=== PATIENT | male | born 1935 | race Caucasian/White ===

== ENCOUNTER 2019-06-02 10:57 | Inpatient (IN) | payer MEDICARE, OTHER ==
[~2019-06-02] VITALS: Ht 180.3 cm; Wt 74.1 kg
[2019-06-02] MEDS ORDERED: SODIUM CHLORIDE 0.9% 1,000 ML IV ONE ×2 (11:03→15:00)
[2019-06-02 11:33] LABS: Basophils # (auto) 0 uL; Basophils % (auto) 0.4 % (0.0-2.0); Eosinophils # (auto) 0.1 uL; Eosinophils % (auto) 1.5 % (0.0-7.0); Hematocrit 38.2 % (41.0-53.0); Hemoglobin 12.8 g/dL (13.5-17.5); Lymphocytes # (auto) 1.1 uL; Lymphocytes % (auto) 17.3 % (10.0-50.0); Mean Corpuscular Hemoglobin 31.7 pg (28.0-32.0); Mean Corpuscular Hgb Conc. 33.4 g/dL (32.0-36.0); Mean Corpuscular Volume 94.8 fL (80.0-100.0); Monocytes # (auto) 0.6 uL; Monocytes % (auto) 9.1 % (0.0-12.0); Neutrophils # (auto) 4.5 uL; Neutrophils % (auto) 71.7 % (37.0-80.0); Nucleated Red Blood Cells % 0.1 %; Platelet Count (auto) 165 10^3/uL (140-450); Red Blood Cells 4.02 10^6/uL (4.5-5.90); Red Cell Distribution Width 13.9 % (11.8-14.3); White Blood Cell 6.3 10^3/uL (4.4-10.8)
[2019-06-02 11:53] LABS: Alanine Aminotransferase 17 U/L (16-61); Albumin 3.2 g/dL (3.4-5.0); Anion Gap 8 (5-15); Blood Urea Nitrogen 31 mg/dL (7-18); Calcium 8.3 mg/dL (8.5-10.1); Carbon Dioxide 23 mmol/L (21-32); Chloride 108 mmol/L (98-107); Glucose 116 mg/dL (74-106); Magnesium 1.9 mg/dL (1.6-2.6); Potassium 4.2 mmol/L (3.5-5.1); Sodium 139 mmol/L (136-145)
[2019-06-02 11:58] LABS: Alkaline Phosphatase 67 U/L (45-117); Aspartate Aminotransferase 19 U/L (15-37); BUN/Creatinine Ratio 17.3; Bilirubin, Total 0.7 mg/dL (0.2-1.0); GFR African American 47 mL/min; GFR Non-African American 39 mL/min
[2019-06-02] MEDS ORDERED: ONDANSETRON HCL 4 MG/2 ML VIAL IV PRN (15:00)
[2019-06-02] MEDS ORDERED: ACETAMINOPHEN 500 MG TAB PO PRN (15:00)
[2019-06-02] MEDS ORDERED: hydrALAZINE HCL 20 MG/ML VL IV PRN (15:00)
[2019-06-02] MEDS ORDERED: HYDROcodone-ACET 5/325MG TAB PO PRN (15:00)
[2019-06-02] MEDS ORDERED: NITROGLYCERIN 0.4 MG SL TAB SL PRN (15:00)
[2019-06-02] MEDS ORDERED: AZITHROMYCIN 250 MG TAB PO ONE (15:00)
[2019-06-02] MEDS ORDERED: MORPHINE SULF INJ 2 MG/ML SYRINGE 1ML IV PRN ×2 (15:00)
[2019-06-02 15:22] LABS: Cholesterol 120 mg/dL (< 200); Triglycerides 119 mg/dL (< 150)
[2019-06-02 15:24] LABS: HDL Cholesterol 35 mg/dL (40-59); LDL Cholesterol 77 mg/dL (< 100)
[2019-06-02 15:57] VITALS: BP 148/83
--- NOTE | 2019-06-02 16:00 | NUR ---
PATIENT ARRIVED ON FLOOR. PATIENT ORIENTATED TO [facility]. ORIENTATED TO HOSPITAL ROOM AND US OF BED AND CALL LIGHT. FALL PRECAUTIONS IN PLACE PER HOSPITAL POLICY. PATIENT ON TELE MONITOR. NO S/S OF DISTRESS NOTED AT THIS TIME. PATIENT DENIES ANY PAIN. WOUND TO LEFT FOREARM DRESSED WITH OPTIFOAM. PATIENT UPDATED ON POC. ALL QUESTIONS ANSWERED. BED IN LOWEST LOCKED POSITION WITH CALL LIGHT WITHIN REACH.
[2019-06-02 17:00] VITALS: BP 148/83
[2019-06-02] MEDS ORDERED: SIMV10TA84 PO (18:57)
[2019-06-02] MEDS ORDERED: GABA300C10 PO (18:59)
[2019-06-02] MEDS ORDERED: LEVO50TA7 PO (18:59)
[2019-06-02] MEDS ORDERED: OMEP20TA PO (18:59)
--- NOTE | 2019-06-02 19:30 | NUR ---
Opening Shift Note Assumed care of patient, awake and alert. No S/S of distress/SOB or pain. Instructed on POC and to call for assist PRN, will continue to monitor for changes Q1hr and PRN. Side rails up x2. Bed locked in lowest position. Call light within reach.
[2019-06-02] MEDS: ATORVASTATIN 20 MG TAB PO SCH (21:03)
[2019-06-02 22:00] VITALS: BP 104/62
--- NOTE | 2019-06-03 02:16 | NUR ---
Patient ambulated to the bathroom with stand by assist. Gait even with no signs of distress.
[2019-06-03 05:00] VITALS: BP 131/76
[2019-06-03] MEDS ORDERED: LATA0.0015 EACHEYE (06:22)
[2019-06-03] MEDS: LEVOTHYROXINE SODIUM 50 MCG TAB PO SCH (07:18)
--- NOTE | 2019-06-03 07:20 | NUR ---
Opening Note Assumed pt care from [facility] nurse. Pt is a/ox4 with no s/s of distress or SOB. Pt is currently laying in bed with no complaints. Pt states that he feels "much better" compared to yesterday. Discussed POC with pt and the pending head MRI today; pt verbalized understanding. Safety measures maintained with call light within reach, bed in lowest position and side rails up. Will continue to monitor for changes q1hr and prn.
--- NOTE | 2019-06-03 07:23 | NUR ---
Endorsed care to day shift RN.
[2019-06-03 09:00] VITALS: BP 154/81
[2019-06-03] MEDS: AZITHROMYCIN 250 MG TAB PO SCH (09:13)
[2019-06-03] MEDS: amLODIPine BESYLATE 5 MG TAB PO SCH (09:13)
[2019-06-03] MEDS: ASPirin 81 mg TAB PO SCH (09:14)
[2019-06-03] MEDS: FAMOTIDINE 20 MG TAB PO SCH (09:14)
[2019-06-03] MEDS ORDERED: LORazepam 2MG/ML-1ML VIAL IV ONE (09:45)
[2019-06-03] MEDS: SODIUM CHLORIDE 0.9% 1,000 ML IV SCH ×2 (10:34→21:27)
[2019-06-03 12:00] VITALS: BP 139/77
--- NOTE | 2019-06-03 13:52 | NUR ---
Pt Taken Down to MRI via Wheelchair Addendum: 06/03/19 at 1418 by SEJAL DELEON RN RN Pt Back on unit
--- NOTE | 2019-06-03 15:00 | NUR ---
PT REPORTS THAT HE IS WALKING FINE AND DOES NOT NEED P.T.
--- NOTE | 2019-06-03 16:21 | NUR ---
UA SENT TO LAB
[2019-06-03 16:42] LABS: Urine WBC None Seen /hpf (0 - 3)
[2019-06-03 17:00] VITALS: BP 122/74
[2019-06-03 17:03] LABS: Urine Bacteria NONE SEEN /hpf (None Seen); Urine Blood Negative /uL (Negative); Urine Specific Gravity 1.008 (1.001-1.035)
[2019-06-03] MEDS: ATORVASTATIN 20 MG TAB PO SCH (21:27)
[2019-06-03 22:07] VITALS: BP 110/63
--- NOTE | 2019-06-04 02:16 | NUR ---
Rounds Patient in bed asleep with no signs of distress/sob/pain. Will continue to monitor Q1HPRN.
--- NOTE | 2019-06-04 03:18 | NUR ---
Patient ambulated to the bathroom with stand by assist. Gait even with no signs of distress.
[2019-06-04 05:57] VITALS: BP_SYST 150; BP_SYST 151; BP_DIAS 81; BP_DIAS 87
[2019-06-04] MEDS: LEVOTHYROXINE SODIUM 50 MCG TAB PO SCH (06:41)
[2019-06-04 07:10] LABS: Basophils # (auto) 0 uL; Basophils % (auto) 0.3 % (0.0-2.0); Eosinophils # (auto) 0.1 uL; Eosinophils % (auto) 2.2 % (0.0-7.0); Hematocrit 39.9 % (41.0-53.0); Hemoglobin 13.6 g/dL (13.5-17.5); Lymphocytes # (auto) 1.2 uL; Mean Corpuscular Hemoglobin 31.7 pg (28.0-32.0); Mean Corpuscular Volume 93.3 fL (80.0-100.0); Monocytes # (auto) 0.4 uL; Monocytes % (auto) 7.6 % (0.0-12.0); Neutrophils # (auto) 3.1 uL; Neutrophils % (auto) 64.9 % (37.0-80.0); Nucleated Red Blood Cells % 0.1 %; Platelet Count (auto) 165 10^3/uL (140-450); Red Blood Cells 4.28 10^6/uL (4.5-5.90); Red Cell Distribution Width 13.7 % (11.8-14.3); White Blood Cell 4.8 10^3/uL (4.4-10.8)
--- NOTE | 2019-06-04 07:10 | NUR ---
Opening Shift Note Report received and rounding completed. Patient observed awake, alert, and oriented without current S/S of distress. Patient oriented to this RN and POC, verbalized understanding. Call pruitt within reach and understood to call if needing assistance. Side rails up x2.
--- NOTE | 2019-06-04 07:23 | NUR ---
Endorsed care to day shift RN.
[2019-06-04 07:29] LABS: BUN/Creatinine Ratio 16.3; Calcium 8.7 mg/dL (8.5-10.1); Potassium 4.2 mmol/L (3.5-5.1)
[2019-06-04 08:05] VITALS: BP 151/86
[2019-06-04 09:00] VITALS: BP 151/86
[2019-06-04] MEDS: AZITHROMYCIN 250 MG TAB PO SCH (09:55)
[2019-06-04] MEDS: amLODIPine BESYLATE 5 MG TAB PO SCH (09:55)
[2019-06-04] MEDS: ASPirin 81 mg TAB PO SCH (09:55)
[2019-06-04] MEDS: FAMOTIDINE 20 MG TAB PO SCH (09:55)
[2019-06-04 11:58] VITALS: BP 151/86
--- NOTE | 2019-06-04 12:30 | NUR ---
Discharge Note Discharge instructions given as ordered. Encourage to follow up with PMD as instructed. All questions and concerns addressed. Patient verbalized understanding. Medication reconciliation form completed and copy given to patient. IV removed with catheter intact, pressure dressing applied. Photo taken of right forearm skin tear for discharge. Telemetry unit returned to ICU. Patient walked downstairs by GLYNN Summer with all personal belongings, accompanied family members. No distress noted at time of departure.
[2019-06-04 13:00] VITALS: BP 151/79
== END 2019-06-04 12:30 | disposition home or self-care (01) | DRG 73 ==
LOC: EDBD 10:57 → ER 10:57 → OVERFLOW 10:58 → TELE-CENTR 16:01
PROVIDERS: ADMIT Nurse Practitioner Acute Care; ATTEND Internal Medicine
DX: G90.8 Other disorders of autonomic nervous system (principal); N17.0 Acute kidney failure with tubular necrosis; E86.0 Dehydration; E03.9 Hypothyroidism, unspecified; E78.5 Hyperlipidemia, unspecified; E87.6 Hypokalemia; E78.00 Pure hypercholesterolemia, unspecified; G93.89 Other specified disorders of brain; I12.9 Hypertensive chronic kidney disease with stage 1 through stage 4 chronic kidney disease, or unspecified chronic kidney disease; I65.21 Occlusion and stenosis of right carotid artery; J20.9 Acute bronchitis, unspecified; G89.29 Other chronic pain; N18.3 Chronic kidney disease, stage 3 (moderate); Z79.82 Long term (current) use of aspirin; Z86.73 Personal history of transient ischemic attack (TIA), and cerebral infarction without residual deficits; Z87.891 Personal history of nicotine dependence; Z79.899 Other long term (current) drug therapy
CPT/HCPCS: 36415; 70450; 70551; 71045; 80048; 80053; 80061; 81001; 83735; 84443; 84484; 85025; 93005; 93306; 93886; 94761; 96360; G0378

== ENCOUNTER 2022-02-23 10:21 | Emergency (ER) | payer MEDICARE, OTHER ==
[~2022-02-23] VITALS: Ht 177.8 cm; Wt 77.2 kg
[~2022-02-23 10:21] MED LIST: GABA300C10 PO; LATA0.0019 EACHEYE; LEVO50TA7 PO; OMEP20TA PO; SIMV10TA84 PO
[2022-02-23 11:00] VITALS: BP 140/78
[2022-02-23] MEDS ORDERED: CEPH-509 PO (11:04)
== END 2022-02-23 11:20 | disposition home or self-care (01) ==
LOC: ER 10:21
DX: S61.512A Laceration without foreign body of left wrist, initial encounter (principal); I12.9 Hypertensive chronic kidney disease with stage 1 through stage 4 chronic kidney disease, or unspecified chronic kidney disease; N18.9 Chronic kidney disease, unspecified; E78.5 Hyperlipidemia, unspecified; E03.9 Hypothyroidism, unspecified; Z90.89 Acquired absence of other organs; Z87.891 Personal history of nicotine dependence; Z79.899 Other long term (current) drug therapy; W26.8XXA Contact with other sharp object(s), not elsewhere classified, initial encounter; Y93.89 Activity, other specified; Y92.89 Other specified places as the place of occurrence of the external cause; Y99.8 Other external cause status

== ENCOUNTER 2022-11-30 09:32 | Emergency (ER) | payer MEDICARE, OTHER ==
[~2022-11-30] VITALS: Ht 177.8 cm; Wt 64.2 kg
[~2022-11-30 09:32] MED LIST changes: +CEPH-509 PO
[2022-11-30 10:42] VITALS: BP 126/75
[2022-11-30] MEDS ORDERED: CEPH-510 PO (11:13)
[2022-11-30] MEDS ORDERED: ACET1CAP14 PO (11:13)
== END 2022-11-30 11:17 | disposition home or self-care (01) ==
LOC: ER 09:32
DX: L03.031 Cellulitis of right toe (principal); E78.5 Hyperlipidemia, unspecified; I12.9 Hypertensive chronic kidney disease with stage 1 through stage 4 chronic kidney disease, or unspecified chronic kidney disease; N18.9 Chronic kidney disease, unspecified; Z87.891 Personal history of nicotine dependence
CPT/HCPCS: 73630

== ENCOUNTER 2023-01-07 19:17 | Inpatient (IN) | payer MEDICARE, OTHER ==
[~2023-01-07] VITALS: Ht 177.8 cm; Wt 62.0 kg
[~2023-01-07 19:17] MED LIST changes: +ACET1CAP14 PO; +CEPH-510 PO; +GABA-1250 PO; -GABA300C10 PO; -LATA0.0019 EACHEYE; +LATA0.008 EACHEYE; +SIMV10TA20 PO; -SIMV10TA84 PO
[2023-01-07 20:12] LABS: Basophils # (auto) 0 10 ^3/uL (0-0.2); Basophils % (auto) 0.8 % (0.0-2.0); Eosinophils # (auto) 0.3 10 ^3/uL (0-0.8); Eosinophils % (auto) 4.9 % (0.0-7.0); Hematocrit 32.2 % (41.0-53.0); Hemoglobin 10.9 g/dL (13.5-17.5); Lymphocytes # (auto) 1.4 10 ^3/uL (0.4-5.4); Mean Corpuscular Hemoglobin 31.9 pg (28.0-32.0); Mean Corpuscular Hgb Conc. 33.9 g/dL (32.0-36.0); Mean Corpuscular Volume 94.1 fL (80.0-100.0); Monocytes # (auto) 0.4 10 ^3/uL (0-1.3); Monocytes % (auto) 8.2 % (0.0-12.0); Neutrophils # (auto) 3.1 10 ^3/uL (1.6-8.6); Neutrophils % (auto) 59.1 % (37.0-80.0); Red Blood Cells 3.42 10^6/uL (4.5-5.90); White Blood Cell 5.3 10^3/uL (4.4-10.8)
[2023-01-07 20:35] LABS: Albumin 3.4 g/dL (3.4-5.0); BUN/Creatinine Ratio 26.7 (10.0-20.0); Calcium 8.5 mg/dL (8.5-10.1)
[2023-01-07 20:38] LABS: Bilirubin, Total 0.4 mg/dL (0.2-1.0); Total Protein 6.4 g/dL (6.4-8.2)
[2023-01-07 20:55] LABS: Potassium 5.7 mmol/L (3.5-5.1)
[2023-01-08] MEDS ORDERED: InsuLIN REG 1unit/0.01ml Soln (100units/ml) IV ONE (01:45)
[2023-01-08] MEDS ORDERED: CALCIUM GLUC 1,000mg/50ml-NS 50 ML IV ONE ×2 (01:45)
[2023-01-08] MEDS ORDERED: DEXTROSE (50%) 50ML SYRG IV ONE (01:45)
[2023-01-08] MEDS ORDERED: DEXTROSE 10% 250 ML IV ONE ×2 (01:58→02:45)
[2023-01-08] MEDS: SODIUM CHLORIDE 0.9% 2,000 ML IV ONE ×2 (02:47→03:19)
[2023-01-08 03:28] LABS: Urine WBC None Seen /hpf (0 - 3)
[2023-01-08 03:43] LABS: Urine Bacteria NONE SEEN /hpf (None Seen); Urine Blood Negative /uL (Negative); Urine Specific Gravity 1.007 (1.001-1.035)
[2023-01-08] MEDS ORDERED: ONDANSETRON HCL 4 MG/2 ML VIAL IV PRN (05:00)
[2023-01-08] MEDS ORDERED: ACETAMINOPHEN 325 MG TAB PO PRN (05:00)
[2023-01-08] MEDS ORDERED: HYDROcodone-ACET 5/325MG TAB PO PRN (05:00)
[2023-01-08] MEDS ORDERED: DOCUSATE SOD 100 MG CAP PO PRN (05:00)
[2023-01-08] MEDS ORDERED: SODIUM CHLORIDE 0.9% 1,000 ML IV ONE (05:15)
[2023-01-08 06:06] LABS: Basophils # (auto) 0 10 ^3/uL (0-0.2); Basophils % (auto) 0.9 % (0.0-2.0); Eosinophils # (auto) 0.2 10 ^3/uL (0-0.8); Eosinophils % (auto) 5.4 % (0.0-7.0); Hematocrit 29.9 % (41.0-53.0); Hemoglobin 10.1 g/dL (13.5-17.5); Lymphocytes # (auto) 1.1 10 ^3/uL (0.4-5.4); Lymphocytes % (auto) 28.5 % (10.0-50.0); Mean Corpuscular Hgb Conc. 33.7 g/dL (32.0-36.0); Mean Corpuscular Volume 95.1 fL (80.0-100.0); Monocytes # (auto) 0.4 10 ^3/uL (0-1.3); Monocytes % (auto) 9.7 % (0.0-12.0); Neutrophils # (auto) 2.2 10 ^3/uL (1.6-8.6); Neutrophils % (auto) 55.5 % (37.0-80.0); Nucleated Red Blood Cells % 0.1 %; Red Blood Cells 3.14 10^6/uL (4.5-5.90); Red Cell Distribution Width 13.8 % (11.8-14.3); White Blood Cell 3.9 10^3/uL (4.4-10.8)
[2023-01-08] MEDS: SODIUM CHLORIDE 0.9% 1,000 ML IV SCH ×2 (06:17→21:40)
[2023-01-08 06:23] LABS: Albumin 2.8 g/dL (3.4-5.0); Potassium 4.6 mmol/L (3.5-5.1)
[2023-01-08 06:26] LABS: Calcium 8.7 mg/dL (8.5-10.1)
[2023-01-08] MEDS ORDERED: NITROGLYCERIN 0.4 MG SL TAB SL PRN (06:30)
[2023-01-08] MEDS ORDERED: MORPHINE SULFATE INJ 2 MG/ml SYRG IV PRN (06:30)
[2023-01-08 06:41] LABS: Bilirubin, Total 0.3 mg/dL (0.2-1.0); Total Protein 5.9 g/dL (6.4-8.2)
[2023-01-08] MEDS: LEVOTHYROXINE SODIUM 50 MCG TAB PO SCH (06:44)
[2023-01-08] MEDS: ASPirin 81 mg TAB PO SCH (10:14)
[2023-01-08] MEDS: FAMOTIDINE (10MG/ML) 2ML VL IV SCH ×2 (10:14→23:06)
[2023-01-08 22:55] VITALS: BP 133/65
[2023-01-09 05:00] VITALS: BP 132/75
[2023-01-09 06:11] LABS: Basophils # (auto) 0 10 ^3/uL (0-0.2); Basophils % (auto) 0.7 % (0.0-2.0); Eosinophils # (auto) 0.2 10 ^3/uL (0-0.8); Eosinophils % (auto) 3.8 % (0.0-7.0); Hematocrit 32.7 % (41.0-53.0); Lymphocytes # (auto) 1.1 10 ^3/uL (0.4-5.4); Lymphocytes % (auto) 22.5 % (10.0-50.0); Mean Corpuscular Hemoglobin 31.6 pg (28.0-32.0); Mean Corpuscular Hgb Conc. 33.6 g/dL (32.0-36.0); Monocytes # (auto) 0.4 10 ^3/uL (0-1.3); Monocytes % (auto) 8.5 % (0.0-12.0); Neutrophils # (auto) 3.1 10 ^3/uL (1.6-8.6); Neutrophils % (auto) 64.5 % (37.0-80.0); Red Blood Cells 3.48 10^6/uL (4.5-5.90); White Blood Cell 4.8 10^3/uL (4.4-10.8)
[2023-01-09 06:24] LABS: Potassium 5.5 mmol/L (3.5-5.1)
[2023-01-09] MEDS: LEVOTHYROXINE SODIUM 50 MCG TAB PO SCH (06:28)
[2023-01-09 06:31] LABS: Albumin 3.2 g/dL (3.4-5.0); BUN/Creatinine Ratio 18.2 (10.0-20.0); Bilirubin, Total 0.5 mg/dL (0.2-1.0); Calcium 8.7 mg/dL (8.5-10.1); Total Protein 6.2 g/dL (6.4-8.2)
[2023-01-09 08:25] VITALS: BP 145/74
[2023-01-09] MEDS: FAMOTIDINE (10MG/ML) 2ML VL IV SCH (10:33)
[2023-01-09] MEDS: ASPirin 81 mg TAB PO SCH (10:33)
[2023-01-09] MEDS ORDERED: SODIUM ZIRCONIUM CYCL 10 GM PAK PO ONE (10:45)
[2023-01-09 12:20] VITALS: BP 145/76
[2023-01-09] MEDS ORDERED: ASPI-325 PO (13:03)
[2023-01-09] MEDS: SODIUM CHLORIDE 0.9% 1,000 ML IV SCH (13:32)
== END 2023-01-09 16:20 | disposition home or self-care (01) | DRG 640 ==
LOC: ER 19:17 → TELE 01-08 06:21 → TELE-WESTW 01-08 22:12
PROVIDERS: ADMIT Nurse Practitioner Family; ATTEND Internal Medicine
DX: E87.5 Hyperkalemia (principal); N17.0 Acute kidney failure with tubular necrosis; J84.9 Interstitial pulmonary disease, unspecified; E86.0 Dehydration; E87.1 Hypo-osmolality and hyponatremia; D64.9 Anemia, unspecified; I12.9 Hypertensive chronic kidney disease with stage 1 through stage 4 chronic kidney disease, or unspecified chronic kidney disease; I44.1 Atrioventricular block, second degree; R79.89 Other specified abnormal findings of blood chemistry; R00.1 Bradycardia, unspecified; E78.00 Pure hypercholesterolemia, unspecified; Z85.46 Personal history of malignant neoplasm of prostate
CPT/HCPCS: 36415; 71045; 80053; 81001; 82962; 83880; 84484; 85025; 93005; 93306; 96361; 96365; 96366; 99291; G0378; J1815; J3490

== ENCOUNTER 2023-09-05 14:55 | Emergency (ER) | payer MEDICARE, OTHER ==
[~2023-09-05] VITALS: Ht 170.2 cm; Wt 63.0 kg
[~2023-09-05 14:55] MED LIST changes: +ASPI-325 PO; -CEPH-509 PO; -CEPH-510 PO
[2023-09-05 16:26] VITALS: BP 173/80; PULSE 70; RESP 18; TEMP 98.1; O2SAT 97
[2023-09-05] MEDS ORDERED: TETANUS-DIPTH-ACEL PERTUSSIS 0.5ML SYR Tdap IM ONE (17:15)
== END 2023-09-05 17:37 | disposition home or self-care (01) ==
LOC: ER 14:55
DX: S61.422A Laceration with foreign body of left hand, initial encounter (principal); S60.512A Abrasion of left hand, initial encounter; I12.9 Hypertensive chronic kidney disease with stage 1 through stage 4 chronic kidney disease, or unspecified chronic kidney disease; E78.5 Hyperlipidemia, unspecified; N18.9 Chronic kidney disease, unspecified; Z87.891 Personal history of nicotine dependence; W18.09XA Striking against other object with subsequent fall, initial encounter; Y93.89 Activity, other specified; Y92.89 Other specified places as the place of occurrence of the external cause; Y99.8 Other external cause status
CPT/HCPCS: 12001; 90471; 90715